=== PATIENT | male | born 2005 | race Caucasian/White ===

== ENCOUNTER 2025-08-11 08:51 | Emergency (ER) | payer BC, SELFPAY ==
--- NOTE | 2025-08-11 08:45 | RT.EKG_ITS ---
APPROVED REPORT Exam: Resting ECG Reason for Exam: PMH SVT, weakness Patient Location: E HR:68 bpm ECG Measurements Heart Rate 68 AXIS HI 155 P 21 QRSd 91 QRS 73 QT 375 T 29 QTc 400 Conclusion Sinus rhythm...normal P axis, V-rate 60- 99
[2025-08-11 09:06] VITALS: BP 131/76; PULSE 73; RESP 14; TEMP 36.7; O2SAT 99
--- NOTE | 2025-08-11 09:07 | ED.GENADUL_ITS ---
Discharge Plan Disposition Patient Disposition: Home Condition: Stable Discharge Details Clinical Impression: Myalgia, Fatigue Primary Care Provider: Roma Geller ED Provider: Maxx Pretty Discharge Instructions Instructions: Muscle and Bone Pain (DC), Fatigue ED Additional Instructions: Workup in the ER was reassuring, white blood cell count and inflammatory markers were not elevated. Electrolytes were all normal. Negative chest x-ray. Nega tive flu, RSV, COVID. Awaiting tick and Lyme panel. Recommend rest and plenty of fluids. [id number] Tylenol and/or Motrin as directed for discomfort. Tick and Lyme panel pending, likely will result early next week, you will be contacted if positive and placed on the appropriate antibiotics. Otherwise this is likely a viral syndrome and needs additional time to run its course. Please watch for new or worsening symptoms and return to the ER for any concerns. Lastly, I strongly recommend establishing a local primary care provider for your ongoing medical needs. Stand Alone Forms: Portal Information HPI General Mode of arrival: ambulatory . Date/Time Provider Initiated Documentation: 08/11/25 08:57 . Limitations to Documentation: no limitations . Information obtained by: patient and family . History of Present Illness 20 year old M presents to the emergency department with the chief complaint of Myalgias, described as moderate, with intensity rated at 5. Quality is described as aching, and is localized to the head, upper extremity and lower extremity. Patient reports no radiation. Patient started experiencing this week(s) (1) and it has been constant. No relieving factors improve symptom(s), No exacerbating factors reported . Patient notes cough, headaches, malaise, nausea/vomiting (Nausea yesterday, no vomiting), weakness (Generalized) and other (Describes sensation of room spinning when trying to get to bed last night). Patient did receive the following treatments prior to arrival, other (Tylenol) Review of Systems Constitutional Constitutional: Reports fatigue, Denies fever(s), Reports headache(s) and Reports weakness (Generalized) Eyes Eyes: Denies change in vision ENT Ears, Nose, Mouth, and Throat: Reports headache(s) and Denies neck pain Cardiovascular Cardiovascular: Denies chest pain and Denies dyspnea Respiratory Respiratory: Reports cough (Nonproductive) and Denies dyspnea Gastrointestinal Gastrointestinal: Denies abdominal pain, Denies diarrhea, Reports nausea (Resolved) and Denies vomiting Genitourinary Genitourinary: Denies dysuria Musculoskeletal Musculoskeletal: Reports myalgias, Denies neck pain and Denies tingling Integumentary/Breasts Skin/Breast: Denies rash Neurologic Neurologic: Reports headache(s), Denies tingling and Reports weakness (Generalized) Endocrine Endocrine: Reports fatigue Hematologic/Lymphatic Hematologic/Lymphatic: Denies easy bleeding and Denies easy bruising Exam Const General: cooperative, healthy appearing, comfortable and no acute distress Orientation: alert, awake and oriented x3 [facility] Head: normal to inspection, normocephalic and atraumatic Ears: hearing grossly normal bilaterally, external ears normal, TM's normal bilaterally and EAC's normal Face and sinus: normal facial exam Mouth: moist mucous membranes Throat: posterior oropharynx normal Eyes General: appearance normal, both eyes and all related structures Alignment and Position: alignment normal Periorbital: periorbital findings normal Eyelids: eyelids normal Conjunctivae: conjunctivae normal Sclera: sclerae normal Cornea: corneas normal Pupils: PERRL EOM: EOM intact bilaterally Direct ophthalmoscopy: normal light reflex Other: No nystagmus Neck Neck: normal visual inspection, full ROM, no lymphadenopathy, no meningeal signs, trachea midline and supple Chest Chest: normal inspection of the chest Resp Effort & Inspection: normal respiratory effort and able to speak in complete sentences Auscultation: clear to auscultation bilaterally Cardio Rate: regular rate Rhythm: regular rhythm GI Inspection: normal to inspection Palpation: soft, not firm, no guarding, not rigid and nontender Auscultation: normal bowel sounds Back/Spine/Pelvis Back: no CVA tenderness, No back tenderness and other (No rash) Skin General skin exam: no rashes or lesions noted Neuro General: patient alert, patient awake, patient oriented x3, moves all extr emities and no focal motor deficits Cranial Nerves: CN's II-XI intact bilaterally Cognition: normal cognition Speech: speech normal Gait: normal gait Motor: muscle tone normal throughout Sensory Exam: no sensory deficits noted Extrem General: normal to inspection, full ROM, capillary refill normal and no calf tenderness Psych Appearance: grossly normal Mental Status: mental status grossly normal Medical Decision Making This is an otherwise healthy 20-year-old male, past medical history of SVT, Lyme disease x 2, presenting to the ER with his mother for evaluation of simply not feeling well for about 1 week. He describes moderate fatigue and myalgias. Last night when trying to sleep he felt dizzy like the room was spinning but this has since resolved. He admits to history of SVT and while he has not had any sensation of SVT he is concerned this may be causing the symptoms. He is al so concerned that his glucose levels may be irregular because his family has both prediabetes and diabetes. Patient denies diabetes himself. Lastly, he is concerned that he may have Lyme disease as he describes having Lyme disease as a teenager which was treated, again earlier this summer which was treated and per patient resolved. He had a tick bite to his left knee about 1 month ago. Feels like his symptoms are similar to prior Lyme disease. Denies bull's-eye rash. He tells me he cannot take doxycycline because he developed severe pressure behind his eyes previously. No recent sick contacts. Clinically patient appears well, nontoxic, hemodynamically stable and neurologically intact. EKG reveals sinus rhythm, fingerstick glucose in the 90s. No evidence of bull's-eye rash. Given symptoms, will obtain IV access, obtain routine screening laboratory values including inflammatory markers and tickborne panel. Will provide IV fluid and Toradol. Given cough will obtain chest x-ray. Will also check for flu, RSV, COVID. Patient and family are comfortable with this plan and had no additional questions or concerns. Laboratory values reviewed, normal white blood cell count, normal electrolytes, unremarkable inflammatory markers. Negative urine sample. Negative flu, RSV, COVID. Lyme and tick panel pending Chest x-ray reviewed by me and confirmed by radiology as negative Discussed results with patient and family. Remains hemodynamically stable. No dizziness whatsoever. Feeling improved with IV fluid and Toradol. Myalgias present but improving. Discussed in length. Using shared decision making, will await tick and Lyme panel results likely early next week prior to starting antibiotics. This very well could be a viral syndrome and antibiotics would not be necessary. Also strongly recommend establishing local primary care provider. Encouraged to watch for new or worsening symptoms and return immediately to the ER. Standard discharge and return precautions were provided. Patient understands, is agreeable to this plan, and has no additional questions or concerns upon discharge. This documentation was generated using [employer] system, please disregard any oddities of phrase or misspellings. Lab Data Lab results reviewed: Yes I reviewed the patient's lab results. Labs: Laboratory Tests Range/Units 08/11/25 08/11/25 08/11/25 09:00 09:37 10:14 WBC (4.4-10.8) 10^3/uL 4.93 RBC (4.36-5.78) 10^6/uL 5.30 Hgb (13.5-17.5) g/dL 15.3 Hct (40.0-50.0) % 45.1 MCV (80-95) fL 85 MCH (27.0-33.0) pg 28.9 MCHC (32.0-36.0) % 33.9 RDW (11.8-14.1) % 12.0 Plt Count (130-400) 10^3/uL 200 MPV (8.0-11.0) fL 11.1 H Immature Gran % % 0.4 Neutrophils % % 53.2 Lymphocytes % % 38.5 Monocytes % % 5.9 Eosinophils % % 1.2 Basophils % % 0.8 Nucleated RBC % (0.0-0.3) % 0.0 Absolute Neutrophils (1.2-6.7) 10^3/uL 2.62 Absolute Lymphocytes (1.2-3.4) 10^3/uL 1.90 Absolute Monocytes (0.1-0.8) 10^3/uL 0.29 Absolute Eosinophils (0.0-0.7) 10^3/uL 0.06 Absolute Basophils (0.0-0.2) 10^3/uL 0.04 ESR (0-15) mm/hr 1 Sodium (136-145) mmol/L 142 Potassium (3.5-5.1) mmol/L 3.8 Chloride (98-107) mmol/L 104 Carbon Dioxide (20.0-31.0) mmol/L 30.1 Anion Gap (3-11) mmol/L 7.9 BUN (9-23) mg/dL 16 Creatinine (0.73-1.18) mg/dL 1.0 Est GFR (CKD-EPI 2020) (mL/min/1.73m2) 98.83 Glucose (74-106) mg/dL 91 Calcium (8.3-10.6) mg/dL 9.5 Total Bilirubin (0.2-1.2) mg/dL 0.80 AST (<34) U/L 19 ALT (10-49) U/L 16 Alkaline Phosphatase (46-116) U/L 52 C-Reactive Protein (<=0.50) mg/dL < 0.50 Total Protein (5.7-8.2) g/dL 7.6 Albumin (3.4-5.0) g/dL 4.7 Lipase (<53) U/L 28 Urine Color (Yellow) Yellow Urine Clarity (Clear) Sl Cloudy Urine pH (5-8) 7.5 Ur Specific [place] (1.005-1.025) 1.020 Urine Protein (Neg-Trace) mg/dL Negative Urine Ketones (Negative) mg/dL Negative Urine Blood (Negative) Negative Urine Nitrite (Negative) Negative Urine Bilirubin (Negative) Negative Urine Urobilinogen (Up to 0.2) mg/dL 0.2 Ur Leukocyte Esterase (Negative) Negative Urine Glucose (Negative) mg/dL Negative COVID-19 Source Nasopharynx SARS-CoV-2 (PCR) (Negative) Negative Influenza Type A (PCR) (Negative) Negative Influenza Type B (PCR) (Negative) Negative RSV (PCR) (Negative) Negative ECG Data Attestation: I personally reviewed and interpreted this ECG (s) as follows: Interpretation: Sinus rhythm, ventricular rate 68. No STEMI. Please see ER report by Dr. Haider [facility] All Active Problems (Updated 08/11/25 @ 10:54 by MAURA Arthur) Fatigue (Acute) Myalgia (Acute) Social History Smoking/Tobacco Use Status: Current every day Tobacco Type: e-cigarettes Smoking risk assessment performed?: Yes Substance use type: does not use
--- NOTE | 2025-08-11 09:30 | DI.RAD_ITS ---
Exam(s) XR CHEST 2V PA LATERAL EXAM: XR CHEST 2V PA LATERAL CLINICAL HISTORY: cough. TECHNIQUE: 2D digital imaging was performed. COMPARISON: No exams were available for comparison FINDINGS: 2 views: Heart size is normal. The mediastinum is not widened. Lungs are clear. No infiltrates nor pleural effusions. IMPRESSION: No acute pulmonary findings. DATA REPOSITORY: RADIATION DOSE DELIVERED:
[2025-08-11 09:47] LABS: Abs Immature Grans 0.02 10^3/uL (0.0-0.06); HCT 45.1 % (40.0-50.0); HGB 15.3 g/dL (13.5-17.5); Immature Grans % 0.4 %; MCH 28.9 pg (27.0-33.0); MCHC 33.9 % (32.0-36.0); MCV 85 fL (80-95); MPV 11.1 fL (8.0-11.0); Platelet Count 200 10^3/uL (130-400); RBC 5.30 10^6/uL (4.36-5.78); RDW 12.0 % (11.8-14.1); RDW-SD 37.2 fL; WBC 4.93 10^3/uL (4.4-10.8)
[2025-08-11 09:48] LABS: ESR 1 mm/hr (0-15)
[2025-08-11 10:03] LABS: Lipase 28 U/L (<53)
[2025-08-11 10:05] LABS: ALT 16 U/L (10-49); AST 19 U/L (<34); Albumin 4.7 g/dL (3.4-5.0); Alkaline Phosphatase 52 U/L (46-116); Anion Gap 7.9 mmol/L (3-11); BUN 16 mg/dL (9-23); Bilirubin, Total 0.80 mg/dL (0.2-1.2); CO2 30.1 mmol/L (20.0-31.0); Calcium 9.5 mg/dL (8.3-10.6); Chloride 104 mmol/L (98-107); Glucose 91 mg/dL (74-106); Potassium 3.8 mmol/L (3.5-5.1); Sodium 142 mmol/L (136-145); Total Protein 7.6 g/dL (5.7-8.2)
[2025-08-11] MEDS: Normal Saline 1,000 ML 1000 ML IV (10:06)
[2025-08-11] MEDS: Ketorolac 30 MG/ML VIAL IVP (10:07)
[2025-08-11 10:21] LABS: Glucose Negative (Negative)
[2025-08-11 10:22] LABS: COVID-19 PCR Negative (Negative); RSV PCR Negative (Negative)
[2025-08-11 10:26] LABS: C-Reactive Protein < 0.50 mg/dL (<=0.50)
[2025-08-13 19:39] LABS: B. miyamotoi PCR Negative (Negative); Babesia divergens/MO-1 Negative (Negative); Ehrlichia muris eauclairensis Negative (Negative)
[2025-08-14 11:32] LABS: Lyme Ab w Rflx to Lyme Confirm Negative (Negative)
== END 2025-08-11 11:22 | disposition home or self-care (01) ==
PROVIDERS: Emergency Provider Physician Assistant
DX: R53.83 Other fatigue (principal); M79.18 Myalgia, other site
CPT/HCPCS: 99283; 99285; 36415; 36416; 82962; 96374; 80053; 83690; 85652; 87637; 87798; 93005; 96361; 71046; 81003; 85025; 86140; 86618; 93010; J1885